=== PATIENT | female | born 1985 | race Caucasian/White ===

== ENCOUNTER 2018-05-20 16:09 | Emergency (ER) | payer OTHER | END 2018-05-20 17:31 | disposition home or self-care (01) | LOC: FTE 16:09 | DX: O99.89 Other specified diseases and conditions complicating pregnancy, childbirth and the puerperium (principal); H53.8 Other visual disturbances; Z3A.15 15 weeks gestation of pregnancy | CPT/HCPCS: 99282; Z7502 ==

== ENCOUNTER 2018-07-25 09:21 | Inpatient (IN) | payer OTHER ==
[2018-07-25 10:01] LABS: ADD MAN DIFF? NO
[2018-07-25 10:05] LABS: WHITE BLOOD COUNT 9.7 10^3/ul (4.8-10.8)
[2018-07-25 10:06] LABS: BASOPHILS % 0.3 % (0.0-2.0); EOSINOPHILS # 0.1 10^3/ul (0.0-0.5); EOSINOPHILS % 0.5 % (0.0-7.0); HEMATOCRIT 31.7 % (37.0-47.0); LYMPHOCYTES % 20.6 % (15.0-51.0); MEAN CORPUSCULAR HEMOGLOBIN 31.9 pg (29.0-33.0); MEAN CORPUSCULAR HGB CONC 34.7 g/dl (32.0-37.0); MEAN CORPUSCULAR VOLUME 91.9 fl (82.0-101.0); MONOCYTE # 0.8 10^3/ul (0.3-0.9); MONOCYTES % 7.8 % (0.0-11.0); NEUTROPHIL # 6.8 10^3/ul (1.6-7.5); NEUTROPHILS % 70.5 % (39.0-77.0); PLATELET COUNT 185 10^3/UL (140-415); RED BLOOD COUNT 3.45 10^6/ul (4.20-5.40); RED CELL DISTRIBUTION WIDTH 13.1 % (11.5-14.5)
[2018-07-25 10:12] LABS: MEAN PLATELET VOLUME 10.4 fl (7.4-10.4); POSITIVE DIFF @See below
[2018-07-25] MEDS: LACTATED RINGER'S 1,000 ML IV (11:07)
[2018-07-25 11:28] LABS: ALANINE AMINOTRANSFERASE 16 IU/L (13-69); ALBUMIN 3.5 g/dl (3.3-4.9); ALKALINE PHOSPHATASE 63 IU/L (42-121); AMYLASE 88 U/L (11-123); ANION GAP 6 (5-13); ASPARTATE AMINO TRANSFERASE 25 IU/L (15-46); BILIRUBIN,INDIRECT 0.6 mg/dl (0-1.1); BILIRUBIN,TOTAL 0.6 mg/dl (0.2-1.3); BLOOD UREA NITROGEN 12 mg/dl (7-20); CALCIUM 8.8 mg/dl (8.4-10.2); CARBON DIOXIDE 22 mmol/L (21-31); CHLORIDE 107 mmol/L (97-110); CREATININE 0.49 mg/dl (0.44-1.00); Estimated GFR > 60 mL/min (>60); GLUCOSE 101 mg/dl (70-220); LIPASE 40 U/L (23-300); SODIUM 135 mmol/L (135-144)
[2018-07-25 12:31] LABS: ADD UMIC YES; UR ASCORBIC ACID 20 mg/dL (NEGATIVE); UR BACTERIA FEW /HPF (NONE SEEN); UR BILIRUBIN (Dip) NEGATIVE (NEGATIVE); UR BLOOD (Dip) NEGATIVE (NEGATIVE); UR CLARITY TURBID (CLEAR); UR COLOR YELLOW (YELLOW); UR GLUCOSE (Dip) NEGATIVE (NEGATIVE); UR KETONES (Dip) NEGATIVE (NEGATIVE); UR LEUKOCYTE ESTERASE (Dip) TRACE Leu/ul (NEGATIVE); UR MUCUS FEW /HPF (NONE SEEN); UR NITRITE (Dip) NEGATIVE (NEGATIVE); UR RBC 6 /HPF (0-5); UR SPECIFIC GRAVITY (Dip) 1.018 (1.003-1.030); UR TOTAL PROTEIN (Dip) NEGATIVE (NEGATIVE); UR UROBILINOGEN (Dip) NEGATIVE (NEGATIVE); UR WBC 37 /HPF (0-5)
[2018-07-25] MEDS: ONDANSETRON 4 MG INJ IV ×2 (15:05→21:43)
[2018-07-25] MEDS ORDERED: ONDANSETRON 4 MG INJ (15:06)
[2018-07-25] MEDS: ACETAMINOPHEN 500 MG TAB PO ×2 (15:09→21:15)
[2018-07-25] MEDS: SOD CHLORIDE 0.9% 1,000 ML IV (16:13)
[2018-07-25] MEDS: CEFTRIAXONE 1 GM/50 ML (PMX) 50 ML IVPB (16:14)
[2018-07-26] MEDS: SOD CHLORIDE 0.9% 1,000 ML IV ×3 (00:25→18:36)
[2018-07-26] MEDS: ONDANSETRON 4 MG INJ IV (02:47)
[2018-07-26] MEDS: ACETAMINOPHEN 500 MG TAB PO ×4 (02:47→21:01)
[2018-07-26] MEDS ORDERED: morphine 2 MG INJ IV (03:56)
[2018-07-26] MEDS: morphine 2 MG INJ IV ×2 (04:06→13:30)
[2018-07-26] MEDS: PRENATAL VITAMIN PO (08:34)
[2018-07-26] MEDS: CEFTRIAXONE 1 GM/50 ML (PMX) 50 ML IVPB (16:16)
[2018-07-27] MEDS: morphine 2 MG INJ IV (01:24)
[2018-07-27] MEDS: SOD CHLORIDE 0.9% 1,000 ML IV ×4 (02:13→22:53)
[2018-07-27] MEDS: ACETAMINOPHEN 500 MG TAB PO ×4 (03:08→23:01)
[2018-07-27] MEDS: PRENATAL VITAMIN PO (09:08)
[2018-07-27] MEDS: CEFTRIAXONE 1 GM/50 ML (PMX) 50 ML IVPB (16:05)
[2018-07-27] MEDS: AL HYDROX/MG HYDROX/SIMETH 30 ML CUP PO (17:07)
[2018-07-28] MEDS: SOD CHLORIDE 0.9% 1,000 ML IV ×2 (03:00→11:09)
[2018-07-28] MEDS: ACETAMINOPHEN 500 MG TAB PO (05:13)
[2018-07-28] MEDS: PRENATAL VITAMIN PO (09:26)
[2018-07-28] MEDS: CEFTRIAXONE 1 GM/50 ML (PMX) 50 ML IVPB (15:25)
== END 2018-07-28 16:15 | disposition home or self-care (01) | DRG 833 ==
LOC: OBT 09:21 → L-D 07-26 00:43 → OBT 14:43 → L-D 14:44
DX: O23.02 Infections of kidney in pregnancy, second trimester (principal); B96.20 Unspecified Escherichia coli [E. coli] as the cause of diseases classified elsewhere; Z3A.24 24 weeks gestation of pregnancy
CPT/HCPCS: 76775; 76815; 76817; 76818; 80053; 81001; 82150; 83690; 85025; 87040-91; 87086

== ENCOUNTER 2018-10-09 18:51 | Outpatient (CLI) | payer OTHER ==
[2018-10-09 20:03] LABS: ADD UMIC NO; UR ASCORBIC ACID NEGATIVE (NEGATIVE); UR BILIRUBIN (Dip) NEGATIVE (NEGATIVE); UR BLOOD (Dip) NEGATIVE (NEGATIVE); UR CLARITY CLEAR (CLEAR); UR COLOR STRAW (YELLOW); UR GLUCOSE (Dip) NEGATIVE (NEGATIVE); UR KETONES (Dip) NEGATIVE (NEGATIVE); UR LEUKOCYTE ESTERASE (Dip) NEGATIVE Leu/ul (NEGATIVE); UR NITRITE (Dip) NEGATIVE (NEGATIVE); UR TOTAL PROTEIN (Dip) NEGATIVE (NEGATIVE); UR UROBILINOGEN (Dip) NEGATIVE (NEGATIVE)
== END 2018-10-09 21:20 | disposition home or self-care (01) ==
LOC: OBT 18:51 → L-D 18:51 → OBT 21:20
DX: O36.8130 Decreased fetal movements, third trimester, not applicable or unspecified (principal); Z3A.35 35 weeks gestation of pregnancy
CPT/HCPCS: 76815; 76818; 81003

== ENCOUNTER 2018-10-11 08:08 | Outpatient (CLI) | payer OTHER ==
[2018-10-11 10:16] LABS: ADD UMIC NO; UR ASCORBIC ACID NEGATIVE (NEGATIVE); UR BILIRUBIN (Dip) NEGATIVE (NEGATIVE); UR BLOOD (Dip) NEGATIVE (NEGATIVE); UR CLARITY CLEAR (CLEAR); UR COLOR YELLOW (YELLOW); UR GLUCOSE (Dip) 2+ mg/dL (NEGATIVE); UR KETONES (Dip) NEGATIVE (NEGATIVE); UR LEUKOCYTE ESTERASE (Dip) NEGATIVE Leu/ul (NEGATIVE); UR NITRITE (Dip) NEGATIVE (NEGATIVE); UR SPECIFIC GRAVITY (Dip) 1.006 (1.003-1.030); UR TOTAL PROTEIN (Dip) NEGATIVE (NEGATIVE); UR UROBILINOGEN (Dip) NEGATIVE (NEGATIVE)
== END 2018-10-11 11:05 | disposition home or self-care (01) ==
LOC: OBT 08:08 → L-D 08:08 → OBT 11:05
DX: O36.8130 Decreased fetal movements, third trimester, not applicable or unspecified (principal); Z3A.35 35 weeks gestation of pregnancy
CPT/HCPCS: 76818; 81003